=== PATIENT | female | born 1940 | race Caucasian/White ===

== ENCOUNTER → 2016-12-09 | Outpatient (CLI) | payer MEDICARE, OTHER | END | disposition home or self-care (01) | LOC: RADPV 09:56 | PROVIDERS: ATTEND Orthopaedic Surgery | DX: S72.434A Nondisplaced fracture of medial condyle of right femur, initial encounter for closed fracture (principal); M25.461 Effusion, right knee; Z96.651 Presence of right artificial knee joint; X58.XXXA Exposure to other specified factors, initial encounter; Y93.9 Activity, unspecified; Y92.9 Unspecified place or not applicable; Y99.9 Unspecified external cause status ==

== ENCOUNTER → 2017-01-06 | Outpatient (CLI) | payer MEDICARE, OTHER | END | disposition home or self-care (01) | LOC: RADPV 09:29 | PROVIDERS: ATTEND Orthopaedic Surgery | DX: M97.11XD Periprosthetic fracture around internal prosthetic right knee joint, subsequent encounter (principal); Z96.651 Presence of right artificial knee joint ==

== ENCOUNTER 2017-07-02 06:52 | Inpatient (IN) | payer MEDICARE, OTHER ==
[~2017-07-02] VITALS: Ht 162.6 cm; Wt 65.9 kg
[~2017-07-02 06:52] MED LIST: CeFAZolin 2 GM/DEXTROSE 50 ML IV ONE; RINGERS SOLUTION,LACTATED 1,000 ML IV ONE
[2017-07-02] MEDS ORDERED: RINGERS SOLUTION,LACTATED 1,000 ML IV ONE ×4 (07:00→09:09)
[2017-07-02] MEDS ORDERED: MELO-107 PO (07:34)
[2017-07-02] MEDS ORDERED: FOLI1 PO (07:34)
[2017-07-02] MEDS ORDERED: VALA500T38 PO (07:34)
[2017-07-02] MEDS ORDERED: HYDR200T4 PO (07:34)
[2017-07-02] MEDS ORDERED: OMEP20 PO (07:34)
[2017-07-02] MEDS ORDERED: FLUO-191 PO (07:34)
[2017-07-02 07:36] LABS: BASOPHILS % (AUTO) 0.5 % (0.0-2.0); EOSINOPHILS % (AUTO) 0.7 % (1.0-6.0); HEMATOCRIT 41.7 % (36-46); HEMOGLOBIN 13.7 g/dL (12.0-16.0); LYMPHOCYTES # (AUTO) 0.8 K/uL (1.0-4.8); MEAN CORPUSCULAR HGB CONC 32.8 G/dL (31.0-37.0); MEAN CORPUSCULAR VOLUME 95 fL (80-100); MONOCYTES # (AUTO) 0.6 K/uL (0.1-1.0); MONOCYTES % (AUTO) 10.8 % (2.0-9.0); NEUTROPHILS # (AUTO) 4.1 K/uL (1.8-7.7); PLATELET COUNT (AUTO) 183 K/uL (150-450); RED BLOOD CELL COUNT(AUTO) 4.41 MIL/uL (4.00-5.20)
[2017-07-02] MEDS ORDERED: VANCOMYCIN HCL 1 GM/VIAL ONE ×2 (07:52→09:09)
[2017-07-02] MEDS ORDERED: BUPIVACAINE HCL/PF 0.5% 30 ML VIAL ONE (07:52)
[2017-07-02] MEDS ORDERED: SODIUM CL IRRIG SOLN BAG 3,000 ML IRRIG ONE (07:53)
[2017-07-02] MEDS ORDERED: CeFAZolin 2 GM/DEXTROSE 50 ML IV ONE (08:30)
[2017-07-02] MEDS ORDERED: TRANEXAMIC ACID 1,000 MG in DEXTROSE 5%-WATER 50 ML IV ONE (08:30)
[2017-07-02] MEDS ORDERED: MORPHINE SULFATE 2 MG/ML SYRINGE IVP PRN (09:30)
[2017-07-02] MEDS ORDERED: ONDANSETRON HCL 4 MG/2 ML VIAL IM PRN (09:30)
[2017-07-02] MEDS ORDERED: MEPERIDINE-PF 25 MG/ML SYRINGE IVP PRN (09:30)
[2017-07-02] MEDS: ACETAMINOPHEN 1000 MG/ISO-OSM 100 ML IV SCH ×2 (09:30→17:47)
[2017-07-02] MEDS ORDERED: ZOLPIDEM TARTRATE 10 MG TABLET PO PRN (11:00)
[2017-07-02] MEDS ORDERED: MORPHINE SULFATE 10 MG/ML SYRINGE IVP PRN (11:00)
[2017-07-02] MEDS ORDERED: BISACODYL 10 MG RECTAL RECTAL SUPPOSITORY PR PRN (11:00)
[2017-07-02] MEDS ORDERED: NALOXONE HCL 0.4 MG/ML VIAL IVP PRN (11:00)
[2017-07-02] MEDS ORDERED: DiphenhydrAMINE HCL 50 MG/ML VIAL IVP PRN (11:00)
[2017-07-02] MEDS ORDERED: FentaNYL CITRATE-PF 100 MCG/2 ML VIAL ONE ×2 (11:06→11:15)
[2017-07-02] MEDS: FentaNYL CITRATE-PF 100 MCG/2 ML VIAL IVP PRN ×4 (11:08→11:53)
[2017-07-02] MEDS ORDERED: MEPERIDINE-PF 25 MG/ML SYRINGE ONE (11:15)
[2017-07-02] MEDS ORDERED: MORPHINE SULFATE 4 MG/ML SYRINGE IVP PRN (11:30)
[2017-07-02 11:46] LABS: BASOPHILS % (AUTO) 0.4 % (0.0-2.0); EOSINOPHILS % (AUTO) 0.4 % (1.0-6.0); HEMATOCRIT 40.9 % (36-46); HEMOGLOBIN 13.4 g/dL (12.0-16.0); LYMPHOCYTES # (AUTO) 1.1 K/uL (1.0-4.8); MEAN CORPUSCULAR HEMOGLOBIN 31.3 pg (26.0-34.0); MEAN CORPUSCULAR HGB CONC 32.8 G/dL (31.0-37.0); MEAN CORPUSCULAR VOLUME 95 fL (80-100); MONOCYTES # (AUTO) 0.9 K/uL (0.1-1.0); MONOCYTES % (AUTO) 9.6 % (2.0-9.0); NEUTROPHILS # (AUTO) 7.7 K/uL (1.8-7.7); NEUTROPHILS % (AUTO) 78.6 % (40.0-70.0); PLATELET COUNT (AUTO) 152 K/uL (150-450); RED BLOOD CELL COUNT(AUTO) 4.29 MIL/uL (4.00-5.20)
[2017-07-02] MEDS ORDERED: DiphenhydrAMINE HCL 50 MG/ML VIAL ONE (11:56)
[2017-07-02] MEDS ORDERED: ONDANSETRON HCL 4 MG/2 ML VIAL IVP ONE (12:00)
[2017-07-02] MEDS ORDERED: METOCLOPRAMIDE HCL 5 MG/ML 2 ML VIAL IVP ONE (12:00)
[2017-07-02] MEDS ORDERED: PROPOFOL 1% 20 ML VIAL IVP ONE (12:00)
[2017-07-02] MEDS ORDERED: DEXAMETHASONE SOD PHOS 4 MG/ML VIAL IVP ONE (12:00)
[2017-07-02] MEDS ORDERED: FentaNYL CITRATE-PF 100 MCG/2 ML VIAL IVP ONE (12:00)
[2017-07-02] MEDS ORDERED: GLYCOPYRROLATE 0.2 MG/ML VIAL IM ONE (12:00)
[2017-07-02] MEDS ORDERED: ROCURONIUM BROMIDE 10 MG/ML 5 ML VIAL IVP ONE (12:00)
[2017-07-02] MEDS ORDERED: LIDOCAINE HCL/PF 2% 5 ML VIAL INJ ONE (12:00)
[2017-07-02] MEDS ORDERED: 0.9% SODIUM CHLORIDE 10 ML VIAL IVP ONE (12:00)
[2017-07-02] MEDS ORDERED: MIDAZOLAM HCL 2 MG/2 ML VIAL IVP ONE (12:00)
[2017-07-02] MEDS ORDERED: HYDROmorphone 2 MG/ML SYRINGE IVP ONE (12:00)
[2017-07-02] MEDS ORDERED: ESMOLOL HCL 10 MG/ML 10 ML VIAL IVP ONE (12:00)
[2017-07-02] MEDS ORDERED: NEOSTIGMINE METHYLSULFATE 1 MG/ML 10 ML VIAL IVP ONE (12:00)
[2017-07-02 12:51] VITALS: BP 136/77
[2017-07-02] MEDS: OxyCODONE HCL/ACETAMINOPHEN 5-325 MG TABLET PO PRN (12:57)
[2017-07-02] MEDS: PIPERACILLIN SODIUM/TAZOBACTAM 2.25 GM in DEXTROSE 5%-WATER 50 ML IV SCH ×3 (13:31→23:06)
[2017-07-02] MEDS: VANCOMYCIN HCL 1 GM/D5% WATER 200 ML IV SCH (15:41)
[2017-07-02] MEDS: CYCLOBENZAPRINE HCL 10 MG TABLET PO SCH ×2 (15:41→20:18)
[2017-07-02 16:04] VITALS: BP 115/65
[2017-07-02] MEDS: FERROUS SULFATE 325 MG EC TABLET PO SCH (17:47)
[2017-07-02] MEDS: MORPHINE SULFATE 4 MG/ML SYRINGE IVP PRN (19:47)
[2017-07-02 20:00] VITALS: BP 131/56
[2017-07-02] MEDS ORDERED: OXYGEN THERAPY IH SCH (20:00)
[2017-07-02] MEDS: OXYGEN THERAPY IH SCH (20:00)
[2017-07-02] MEDS: FAMOTIDINE 20 MG TABLET PO SCH (20:18)
[2017-07-02] MEDS: ENOXAPARIN SODIUM 30 MG/0.3 ML PF SYRINGE SQ SCH (21:40)
[2017-07-02] MEDS: CELECOXIB 100 MG CAPSULE PO SCH (21:42)
[2017-07-03] VITALS (7 sets, daily range): BP systolic 120–155; BP diastolic 55–89
[2017-07-03] MEDS: ACETAMINOPHEN 1000 MG/ISO-OSM 100 ML IV SCH ×2 (01:50→09:30)
[2017-07-03] MEDS ORDERED: SODIUM CHLORIDE 0.9% 500 ML IV ONE (01:55)
[2017-07-03] MEDS: VANCOMYCIN HCL 1 GM/D5% WATER 200 ML IV SCH ×2 (03:14→15:06)
[2017-07-03] MEDS: OxyCODONE HCL/ACETAMINOPHEN 5-325 MG TABLET PO PRN ×4 (05:06→20:17)
[2017-07-03] MEDS: PIPERACILLIN SODIUM/TAZOBACTAM 2.25 GM in DEXTROSE 5%-WATER 50 ML IV SCH ×4 (05:08→22:47)
[2017-07-03 06:11] LABS: BASOPHILS % (AUTO) 0.2 % (0.0-2.0); HEMATOCRIT 36.1 % (36-46); HEMOGLOBIN 12.1 g/dL (12.0-16.0); LYMPHOCYTES # (AUTO) 0.9 K/uL (1.0-4.8); MEAN CORPUSCULAR HEMOGLOBIN 31.7 pg (26.0-34.0); MEAN CORPUSCULAR HGB CONC 33.4 G/dL (31.0-37.0); MEAN CORPUSCULAR VOLUME 95 fL (80-100); MONOCYTES # (AUTO) 1.5 K/uL (0.1-1.0); MONOCYTES % (AUTO) 14.9 % (2.0-9.0); NEUTROPHILS # (AUTO) 7.5 K/uL (1.8-7.7); NEUTROPHILS % (AUTO) 74.9 % (40.0-70.0); PLATELET COUNT (AUTO) 144 K/uL (150-450); RED CELL DISTRIBUTION WIDTH 13.9 % (11.5-14.5)
[2017-07-03 06:33] LABS: ANION GAP 7 mmol/L (8-16); CALCIUM, TOTAL 8.1 mg/dL (8.8-10.5); CARBON DIOXIDE 27 mmol/L (22-29); CHLORIDE 98 mmol/L (98-107); CREATINE KINASE, TOTAL 45 U/L (26-192); CREATININE 0.75 mg/dL (0.60-1.30); GLOMERULAR FILTR. RATE CALC > 60 mL/min (>60); GLUCOSE,RANDOM 145 mg/dL (70-110); POTASSIUM 3.8 mmol/L (3.5-5.1); SODIUM SERUM 132 mmol/L (136-145); UREA NITROGEN, BLOOD 7 mg/dL (7-18)
[2017-07-03 06:42] LABS: B-TYPE NATRIURETIC PEPTIDE 85 pg/mL (0-100)
[2017-07-03] MEDS: FERROUS SULFATE 325 MG EC TABLET PO SCH ×2 (08:00→17:42)
[2017-07-03] MEDS: FAMOTIDINE 20 MG TABLET PO SCH ×2 (08:32→20:16)
[2017-07-03] MEDS: CELECOXIB 100 MG CAPSULE PO SCH ×2 (08:33→20:16)
[2017-07-03] MEDS: CYCLOBENZAPRINE HCL 10 MG TABLET PO SCH ×3 (08:33→20:16)
[2017-07-03] MEDS: BISACODYL 5 MG EC TABLET PO SCH (08:33)
[2017-07-03] MEDS: ENOXAPARIN SODIUM 30 MG/0.3 ML PF SYRINGE SQ SCH (20:17)
[2017-07-03] MEDS: MORPHINE SULFATE 4 MG/ML SYRINGE IVP PRN (22:47)
[2017-07-04] MEDS: VANCOMYCIN HCL 1 GM/D5% WATER 200 ML IV SCH (03:59)
[2017-07-04 06:29] VITALS: BP 130/89
[2017-07-04] MEDS: PIPERACILLIN SODIUM/TAZOBACTAM 2.25 GM in DEXTROSE 5%-WATER 50 ML IV SCH (06:32)
[2017-07-04 06:44] LABS: BASOPHILS % (AUTO) 0.4 % (0.0-2.0); EOSINOPHILS % (AUTO) 0.5 % (1.0-6.0); HEMATOCRIT 33.8 % (36-46); HEMOGLOBIN 11.6 g/dL (12.0-16.0); LYMPHOCYTES # (AUTO) 0.9 K/uL (1.0-4.8); LYMPHOCYTES % (AUTO) 11.3 % (22.0-44.0); MEAN CORPUSCULAR HEMOGLOBIN 32.1 pg (26.0-34.0); MEAN CORPUSCULAR HGB CONC 34.3 G/dL (31.0-37.0); MEAN CORPUSCULAR VOLUME 94 fL (80-100); MONOCYTES # (AUTO) 1.3 K/uL (0.1-1.0); NEUTROPHILS # (AUTO) 5.8 K/uL (1.8-7.7); NEUTROPHILS % (AUTO) 71.8 % (40.0-70.0); PLATELET COUNT (AUTO) 125 K/uL (150-450); RED BLOOD CELL COUNT(AUTO) 3.61 MIL/uL (4.00-5.20); RED CELL DISTRIBUTION WIDTH 14.1 % (11.5-14.5)
[2017-07-04 07:30] VITALS: BP 145/71
[2017-07-04] MEDS: OxyCODONE HCL/ACETAMINOPHEN 5-325 MG TABLET PO PRN ×3 (07:46→21:37)
[2017-07-04] MEDS: FERROUS SULFATE 325 MG EC TABLET PO SCH ×2 (09:17→16:56)
[2017-07-04] MEDS: CELECOXIB 100 MG CAPSULE PO SCH ×2 (09:18→19:47)
[2017-07-04] MEDS: BISACODYL 5 MG EC TABLET PO SCH (09:18)
[2017-07-04] MEDS: FAMOTIDINE 20 MG TABLET PO SCH ×2 (09:19→19:47)
[2017-07-04] MEDS: CYCLOBENZAPRINE HCL 10 MG TABLET PO SCH ×3 (09:19→19:47)
[2017-07-04 11:10] VITALS: BP 145/78
[2017-07-04 15:20] VITALS: BP 136/82
[2017-07-04 19:44] VITALS: BP 103/70
[2017-07-04] MEDS: ENOXAPARIN SODIUM 30 MG/0.3 ML PF SYRINGE SQ SCH (19:48)
[2017-07-04] MEDS: OXYGEN THERAPY IH SCH (19:53)
[2017-07-05 00:01] VITALS: BP 138/70
[2017-07-05 04:35] VITALS: BP 152/66
[2017-07-05 05:59] LABS: BASOPHILS % (AUTO) 0.3 % (0.0-2.0); EOSINOPHILS % (AUTO) 0.6 % (1.0-6.0); HEMATOCRIT 33.8 % (36-46); HEMOGLOBIN 11.4 g/dL (12.0-16.0); LYMPHOCYTES # (AUTO) 0.8 K/uL (1.0-4.8); LYMPHOCYTES % (AUTO) 10.4 % (22.0-44.0); MEAN CORPUSCULAR HEMOGLOBIN 32.1 pg (26.0-34.0); MEAN CORPUSCULAR HGB CONC 33.7 G/dL (31.0-37.0); MEAN CORPUSCULAR VOLUME 95 fL (80-100); MONOCYTES # (AUTO) 1.2 K/uL (0.1-1.0); MONOCYTES % (AUTO) 15.5 % (2.0-9.0); NEUTROPHILS # (AUTO) 5.7 K/uL (1.8-7.7); NEUTROPHILS % (AUTO) 73.2 % (40.0-70.0); PLATELET COUNT (AUTO) 130 K/uL (150-450); RED BLOOD CELL COUNT(AUTO) 3.56 MIL/uL (4.00-5.20); RED CELL DISTRIBUTION WIDTH 13.9 % (11.5-14.5)
[2017-07-05 07:40] VITALS: BP 139/92
[2017-07-05] MEDS: FAMOTIDINE 20 MG TABLET PO SCH (08:51)
[2017-07-05] MEDS: FERROUS SULFATE 325 MG EC TABLET PO SCH (08:51)
[2017-07-05] MEDS: CYCLOBENZAPRINE HCL 10 MG TABLET PO SCH (08:51)
[2017-07-05] MEDS: BISACODYL 5 MG EC TABLET PO SCH (08:51)
[2017-07-05] MEDS: CELECOXIB 100 MG CAPSULE PO SCH (08:51)
[2017-07-05 13:18] VITALS: BP 141/85
== END 2017-07-05 15:00 | DRG 468 ==
LOC: 4E 06:52
PROVIDERS: ADMIT Orthopaedic Surgery; ATTEND Orthopaedic Surgery
PROC: 0SRC0J9 Replacement of Right Knee Joint with Synthetic Substitute, Cemented, Open Approach (ICD-10-PCS; 2017-07-02)
PROC: 0SPC0JZ Removal of Synthetic Substitute from Right Knee Joint, Open Approach (ICD-10-PCS; principal; 2017-07-02 08:30)
DX: T84.022A Instability of internal right knee prosthesis, initial encounter (principal); I10 Essential (primary) hypertension; I25.10 Atherosclerotic heart disease of native coronary artery without angina pectoris; Z98.42 Cataract extraction status, left eye
CPT/HCPCS: 83735; 86850; 86900; 86901; 87081; 88300; 93005; 93306; 97110; 97162; 97166; 97530; 97535; J0131; J0690; J1100; J1170; J1200; J1650; J2175; J2250; J2270; J2405; J2543; J2704; J2765; J3010; J3370; J3490; J7040; J7060; J7120